=== PATIENT | female | born 1970 | race Two or more races ===

== ENCOUNTER 2018-07-30 11:59 | Emergency (ER) | payer OTHER ==
[2018-07-30] MEDS ORDERED: TDAP ADULT 0.5 ML INJ (BOOSTRIX) IM ONE (12:11)
[2018-07-30] MEDS ORDERED: HYDROCODONE/APAP 5/325 TAB PO ONE (12:13)
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
[2018-07-30 13:23] VITALS: BP 130/78
== END 2018-07-30 13:36 | disposition home or self-care (01) ==
LOC: EDBD 11:59
DX: S30.0XXA Contusion of lower back and pelvis, initial encounter (principal); S60.415A Abrasion of left ring finger, initial encounter; V43.62XA Car passenger injured in collision with other type car in traffic accident, initial encounter; Y92.410 Unspecified street and highway as the place of occurrence of the external cause; Y99.9 Unspecified external cause status; Y93.9 Activity, unspecified; Z23 Encounter for immunization